=== PATIENT | female | born 2000 | race Caucasian/White ===

== ENCOUNTER 2020-11-15 16:55 | Emergency (ER) | payer OTHER ==
[~2020-11-15 16:55] MED LIST: OMNICEF 300 MG300 MG PO; VISTARIL 50 MG50 MG PO; ZOFRAN4 MG PO
[2020-11-15] MEDS ORDERED: AMOXICILLIN875 MG PO (17:49)
[2020-11-15] MEDS ORDERED: FLONASE 0.05% N16 GM (17:49)
== END 2020-11-15 17:58 | disposition home or self-care (01) ==
LOC: ER1 16:55
DX: J32.2 Chronic ethmoidal sinusitis (principal); Z88.8 Allergy status to other drugs, medicaments and biological substances; Z87.442 Personal history of urinary calculi; Z88.1 Allergy status to other antibiotic agents
CPT/HCPCS: 87081; 87880; 99283

== ENCOUNTER → 2021-10-23 | Outpatient (CLI) | payer OTHER ==
[~2021-10-23] MED LIST changes: +AMOXICILLIN875 MG PO; +FLONASE 0.05% N16 GM
== END ==
LOC: KOH-I 10:59
DX: M25.571 Pain in right ankle and joints of right foot (principal)
CPT/HCPCS: 73610; 73630

== ENCOUNTER → 2021-11-08 | Outpatient (CLI) | payer OTHER | LOC: KOH-I 11-02 10:30 | DX: S92.214A Nondisplaced fracture of cuboid bone of right foot, initial encounter for closed fracture (principal); S86.311A Strain of muscle(s) and tendon(s) of peroneal muscle group at lower leg level, right leg, initial encounter | CPT/HCPCS: 73718 ==